=== PATIENT | female | born 2005 | race Caucasian/White ===

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

== ENCOUNTER 2023-07-31 15:21 | Emergency (ER) | payer BC ==
--- OUTSIDE RECORDS SUMMARY | 2023-07-31 16:01 | XMS REPORT | Continuity of Care Document ---
:2005 Author Organization [facility] t Address [address] [facility] [address] [place] [id number] Care Team Providers Name Role Phone [email or web address] Attending Clinician Unavailable [email or web address] Admitting Clinician Unavailable Payers Payer Name Policy Type Policy Number Effective Date Expiration Date S t[place] [id number] 2016 00:00:00 [place] ([place] Problems This patient has no known problems. Allergies, Adverse Reactions, Alerts This patient has no known allergies or adverse reactions. Medications This patient has no known medications. Procedures This patient has no known procedures. Encounters Start End Encounter Admission Attending Care Care Encounter Source Date/Time Date/Time Type Type Clinicians Facility Department ID 2023-07-04 2023-07-04 Outpatient GC_GCBZW_Ka PRIV PRIV [id number] [facility] 00:00:00 00:00:00 diyala_S [id number] Medic al 2023-06-14 2023-06-14 Outpatient GC_[email or web address] PRIV PRIV [id number] [facility] 00:00:00 00:00:00 diyala_S [id number] Medic al 2023-06-06 2023-06-06 Outpatient GC_GCBZW_Ka PRIV PRIV [id number] [facility] 00:00:00 00:00:00 diyala_S [id number] Medic al 2023-06-06 2023-06-06 Outpatient GC_GCBZW_Ka PRIV PRIV [id number] [facility] 00:00:00 00:00:00 diyala_S [id number] Medic al 2023-06-04 2023-06-04 Outpatient GC_[email or web address] PRIV PRIV [id number] [facility] 00:00:00 00:00:00 lilliana_Elias [id number] Medic al Results This patient has no known results.
[2023-07-31 16:33] LABS: Specific Gravity 1.025 (1.005-1.030); Transitional Epithelial 20-50 /HPF (None Seen); Urine Bacteria None Seen /HPF (<20); Urine Bilirubin NEGATIVE (Negative); Urine Blood 2+ (Negative); Urine Clarity Extremely Turbid (Clear); Urine Color Dark-Yellow (Yellow); Urine Glucose NEGATIVE (Negative); Urine Mucus Slight /HPF (None Seen); Urine Protein TRACE (Negative); Urine Urobilinogen Normal (Normal); Urine pH 5.5 (5.0-7.0)
[2023-07-31 16:34] LABS: Specific Gravity 1.025 (1.005-1.030)
[2023-07-31] MEDS ORDERED: HYDROCODONE/APAP 5/325 MG TAB ONE (16:42)
--- NOTE | 2023-07-31 16:58 | EDPHYS ---
Physician Documentation [facility] Name: Jing Fabian Age: 17 yrs Sex: Female : 2005 Arrival Date: 07/31/2023 Time: 15:21 Bed 10 Private MD: ED Physician Harlan Odell HPI: 07/31 16:59 This 17 yrs old Female presents to ER via Ambulatory with complaints of Fever. snw 16:59 The patient reports fever, that was measured at 101 degrees Fahrenheit. Onset: The snw symptoms/episode began/occurred suddenly. Associated signs and symptoms: Pertinent positives: fever, dysuria. Severity of symptoms: At their worst the symptoms were moderate. The patient has not experienced similar symptoms in the past. The patient has not recently seen a physician. Historical: - Allergies: 15:56 No Known Allergies; hb - Home Meds: 15:56 None [Active]; hb - PMHx: 15:56 None; hb - PSHx: 15:56 Knee - Bilateral; hb - Immunization history:: Adult Immunizations up to date. - Social history:: Smoking status: Patient denies any tobacco usage or history of. ROS: 16:58 Eyes: Negative for injury, pain, redness, and discharge, ENT: Negative for injury, snw pain, and discharge, Neck: Negative for injury, pain, and swelling, Cardiovascular: Negative for chest pain, palpitations, and edema, Respiratory: Negative for shortness of breath, cough, wheezing, and pleuritic chest pain, Abdomen/GI: Negative for abdominal pain, nausea, vomiting, diarrhea, and constipation, Back: Negative for injury and pain, MS/Extremity: Negative for injury and deformity, Skin: Negative for injury, rash, and discoloration, Neuro: Negative for headache, weakness, numbness, tingling, and seizure, Psych: Negative for depression, anxiety, suicide ideation, homicidal ideation, and hallucinations, 16:58 Constitutional: Positive for body aches, fever, malaise, 16:58 : Positive for urinary symptoms, urinary frequency, burning with urination, Negative for flank pain, bladder incontinence, vaginal discharge, Exam: 16:58 Constitutional: This is a well developed, well nourished patient who is awake, alert, snw and in no acute distress. Head/Face: Normocephalic, atraumatic. Eyes: Pupils equal round and reactive to light, extra-ocular motions intact. Lids and lashes normal. Conjunctiva and sclera are non-icteric and not injected. Cornea within normal limits. Periorbital areas with no swelling, redness, or edema. ENT: Nares patent. No nasal discharge, no septal abnormalities noted. Tympanic membranes are normal and external auditory canals are clear. Oropharynx with no redness, swelling, or masses, exudates, or evidence of obstruction, uvula midline. Mucous membranes moist. Neck: Trachea midline, no thyromegaly or masses palpated, and no cervical lymphadenopathy. Supple, full range of motion without nuchal rigidity, or vertebral point tenderness. No Meningismus. Chest/axilla: Normal chest wall appearance and motion. Nontender with no deformity. No lesions are appreciated. Cardiovascular: Regular rate and rhythm with a normal S1 and S2. No gallops, murmurs, or rubs. Normal PMI, no JVD. No pulse deficits. Respiratory: Lungs have equal breath sounds bilaterally, clear to auscultation and percussion. No rales, rhonchi or wheezes noted. No increased work of breathing, no retractions or nasal flaring. Abdomen/GI: Soft, non-tender, with normal bowel sounds. No distension or tympany. No guarding or rebound. No evidence of tenderness throughout. Back: No spinal tenderness. No costovertebral tenderness. Full range of motion. Skin: Warm, dry with normal turgor. Normal color with no rashes, no lesions, and no evidence of cellulitis. MS/ Extremity: Pulses equal, no cyanosis. Neurovascular intact. Full, normal range of motion. Neuro: Awake and alert, GCS 15, oriented to person, place, time, and situation. Cranial nerves II-XII grossly intact. Motor strength 5/5 in all extremities. Sensory grossly intact. Cerebellar exam normal. Normal gait. Psych: Awake, alert, with orientation to person, place and time. Behavior, mood, and affect are within normal limits. Vital Signs: 15:55 BP 128 / 64; Pulse 107; Resp 16; Temp 100.4(O); Pulse Ox 99% on R/A; Weight 61.23 kg; hb Height 5 ft. 4 in. ; Pain 4/10; 15:55 Body Mass Index 23.17 (61.23 kg, 162.56 cm) - Percentile 65.5 % hb 15:55 Pain Scale: Adult hb MDM: 15:53 Patient medically screened. snw 17:00 Differential diagnosis: viral Infection, bacterial infection, UTI. Data reviewed: vital snw signs, nurses notes, lab test result(s), urinalysis, WBC, s/s. I considered the following discharge prescriptions or medication management in the emergency department Medications were administered in the Emergency Department. See MAR. Counseling: I had a detailed discussion with the patient and/or guardian regarding the historical points, exam findings, and any diagnostic results supporting the discharge/admit diagnosis, lab results, the need for outpatient follow up, for definitive care, to return to the emergency department if symptoms worsen or persist or if there are any questions or concerns that arise at home. Special discussion: Based on the history and exam findings, there is no indication for further emergent testing or inpatient evaluation. I discussed with the patient/guardian the need to see the primary care provider for further evaluation of the symptoms. 07/31 16:03 Order name: Urine W/Microscopic (UAM); Complete Time: 16:37 snw 07/31 16:03 Order name: PREGU; Complete Time: 16:37 snw 07/31 16:37 Order name: Urine Culture EDMS Administered Medications: 16:29 Drug: HYDROcodone-acetaminophen PO 5 mg-325 mg 1 tabs PO once Route: PO; hb 17:18 Drug: Phenazopyridine PO 200 mg PO once Route: PO; iw 17:18 Drug: Rocephin (cefTRIAXone) IM 1 grams IM once Route: IM; Site: right ventrogluteal; iw Disposition: 17:25 I was immediately available on-site in the Emergency Department for consultation in the ms3 care of the patient. Disposition Summary: 07/31/23 16:57 Discharge Ordered Notes: Location: Home snw Condition: Stable snw Diagnosis - UTI/ Urinary tract infection, site not specified snw Followup: snw - With: Emergency Department - When: As needed - Reason: Worsening of condition Followup: snw - With: Private Physician - When: 2 - 3 days - Reason: Recheck today's complaints, Continuance of care, Re-evaluation by your physician Discharge Instructions: - Discharge Summary Sheet snw - Fever, Adult snw - Urinary Tract Infection, Adult snw - Rehydration, Adult snw Forms: - Work release form snw - Medication Reconciliation Form snw - Thank You Letter snw - Antibiotic Education snw - Prescription Opioid Use snw - Patient Portal Instructions snw - Leadership Thank You Letter snw Prescriptions: - Augmentin 875-125 mg Oral Tablet - take 1 tablet ORAL route every 12 hours for 10 days; 20 tablet; Refills: 0, snw Product Selection Permitted - promethazine 25 mg Oral Tablet - take 1 tablet ORAL route every 6 hours As needed; 20 tablet; Refills: 0, snw Product Selection Permitted Signatures: Dispatcher [employer] EDMS Jania Sears, TOUR DIRECTOR-C TOUR DIRECTOR-Csnw Mary Chan RN RN Yue Hernández RN RN Harlan Wagner DO DO ms3 Corrections: (The following items were deleted from the chart) 15:56 15:56 PSHx: None; [facility]
--- NOTE | 2023-07-31 16:58 | ER ---
Nurse's Notes [facility] Name: Jing Fabian Age: 17 yrs Sex: Female : 2005 Arrival Date: 07/31/2023 Time: 15:21 Bed 10 Private MD: Diagnosis: UTI/ Urinary tract infection, site not specified Presentation: 07/31 15:55 Chief complaint: Fever, chills, and dysuria x 2 days. Coronavirus screen: At this time, hb the client does not indicate any symptoms associated with coronavirus-19. Ebola Screen: No symptoms or risks identified at this time. Initial Sepsis Screen: Does the patient meet any 2 criteria? No. Patient's initial sepsis screen is negative. Does the patient have a suspected source of infection? No. Patient's initial sepsis screen is negative. Risk Assessment: Do you want to hurt yourself or someone else? Patient reports no desire to harm self or others. Onset of symptoms was July 30, 2023. 15:55 Method Of Arrival: Ambulatory hb 15:55 Acuity: DUDLEY 3 hb Historical: - Allergies: 15:56 No Known Allergies; hb - Home Meds: 15:56 None [Active]; hb - PMHx: 15:56 None; hb - PSHx: 15:56 Knee - Bilateral; hb - Immunization history:: Adult Immunizations up to date. - Social history:: Smoking status: Patient denies any tobacco usage or history of. Screenin:22 [facility] ED Fall Risk Assessment (Adult) Score/Fall Risk Level 0 - 2 = Low Risk. Abuse iw screen: Denies threats or abuse. Denies injuries from another. Nutritional screening: No deficits noted. Tuberculosis screening: No symptoms or risk factors identified. Assessment: 17:22 General: Appears in no apparent distress. Behavior is calm, cooperative. Pain:. Neuro: iw Level of Consciousness is awake, alert, obeys commands, Oriented to person, place, time, situation, Moves all extremities. Full function. Vital Signs: 15:55 BP 128 / 64; Pulse 107; Resp 16; Temp 100.4(O); Pulse Ox 99% on R/A; Weight 61.23 kg; hb Height 5 ft. 4 in. ; Pain 4/10; 15:55 Body Mass Index 23.17 (61.23 kg, 162.56 cm) - Percentile 65.5 % hb 15:55 Pain Scale: Adult hb ED Course: 15:24 Patient arrived in ED. rg4 15:30 Jania Sears FNP-C is PHCP. snw 15:30 Harlan Odell DO is Attending Physician. snw 15:56 Triage completed. hb 16:14 Arm band placed on. hb 16:59 Nicolasa Morgan RN is Primary Nurse. tm6 17:22 Primary Nurse role handed off by Nicolasa Morgan RN iw 17:22 Mary Chan, RN is Primary Nurse. iw 17:22 No provider procedures requiring assistance completed. Patient did not have IV access iw during this emergency room visit. Administered Medications: 16:29 Drug: HYDROcodone-acetaminophen PO 5 mg-325 mg 1 tabs PO once Route: PO; hb 17:18 Drug: Phenazopyridine PO 200 mg PO once Route: PO; iw 17:18 Drug: Rocephin (cefTRIAXone) IM 1 grams IM once Route: IM; Site: right ventrogluteal; iw Outcome: 16:57 Discharge ordered by MD. snw 17:37 Patient left the ED. iw Addendum: 08/04/2023 14:50 Addendum: Culture Results: Positive urine culture. Bacteria is resistant to, has j l7 intermediate sensitivity, or is not tested against prescribed antibiotics. Report given to TYE for further evaluation and then to sales promoter for follow up with patient. Phone call Attempt #1 no answer, called by charge nurse. 08/05/2023 07:59 Addendum: Culture Results: Positive urine culture. Bacteria is resistant to, has j l7 intermediate sensitivity, or is not tested against prescribed antibiotics. Report given to TYE for further evaluation and then to sales promoter for follow up with patient. Phone call Attempt #2 no answer, left voicemail. 08/06/2023 07:45 Addendum: Culture Results: Positive urine culture. Bacteria is resistant to, has a p3 intermediate sensitivity, or is not tested against prescribed antibiotics. Report given to TYE for further evaluation and then to sales promoter for follow up with patient. Phone call Attempt #3 patient did not answer, a voice mail was left. Signatures: Jania Sears FNP-C SOAP [employer]ABBER-Csnw Mary Chan RN RN Yue Hernández RN RN Lynda Amaya4 Belén England, RN RN [id number] Amy Blandon RN RN ap3 Nicolasa Morgan RN RN tm6 Corrections: (The following items were deleted from the chart) 07/31 15:56 15:56 PSHx: None; hb hb
[2023-07-31] MEDS ORDERED: PHENAZOPYRIDINE 100MG TAB PO ONE (17:18)
[2023-07-31] MEDS ORDERED: CEFTRIAXONE 1000 MG/VIAL ONE (17:18)
[2023-07-31] MEDS ORDERED: LIDOCAINE 1% MPF 5 ML VIAL ONE (17:25)
[2023-07-31 17:42] VITALS: BP 128/64; TEMP 100.4; O2SAT 99
== END 2023-07-31 17:37 | disposition home or self-care (01) ==
LOC: ER 15:21
DX: N39.0 Urinary tract infection, site not specified (principal)
CPT/HCPCS: 87088; 81001; 87086; 81025; 87077; 87186; 96372; 99284; J2001; J0696